=== PATIENT | female | born 1990 | race Hispanic/Latino ===

== ENCOUNTER 2017-05-14 11:56 | Emergency (ER) | payer OTHER ==
[2017-05-14 12:03] VITALS: BMI 26.5
--- NOTE | 2017-05-14 12:05 | ED PDOC ---
Arrival/HPI - General Chief Complaint: ENT Problem Time Seen by Provider: 05/14/17 12:05 Historian: Patient - History of Present Illness Narrative History of Present Illness (Text): 05/14/17 12:21 26 year old female, with no significant past medical history, is presenting to the emergency department with complaints of throat pain. The patient reports the throat pain began 4 days ago and has been taking Augmentin for the past two days, but does not feel any improvement. She states the pain is worsening and is radiating to her left ear. She reports hoarse voice. Has appointment with PMD Ric tomorrow. Denies fever, drooling, significant cough. PMD: Dr. Grover ENT: Dr. Trivedi Time/Duration: < week (4 days ) Symptom Onset: Gradual Symptom Course: Worsening Activities at Onset: Rest, Light Context: Home Past Medical History - Provider Review Nursing Documentation Reviewed: Yes - Infectious Disease Hx of Infectious Diseases: None - Tetanus Immunization Tetanus Immunization: Unknown - Past Medical History Past Medical History: No Previous - Psychiatric Hx Depression: No Hx Emotional Abuse: No Hx Physical Abuse: No Hx Substance Use: No - Past Surgical History Past Surgical History: No Previous - Suicidal Assessment Feels Threatened In Home Enviroment: No Family/Social History - Physician Review Nursing Documentation Reviewed: Yes Family/Social History: Unknown Family HX Smoking Status: Never Smoked Hx Alcohol Use: No Hx Substance Use: No Hx Substance Use Treatment: No Allergies/Home Meds Allergies/Adverse Reactions: Allergies azithromycin [From Zithromax] Allergy (Verified 05/14/17 12:03) DIARRHEA levofloxacin [From Levaquin] Allergy (Verified 05/14/17 12:03) PAIN Home Medications: Home Meds Medication Instructions Recorded Confirmed No Known Home Med 05/14/17 05/14/17 Review of Systems - Physician Review All systems were reviewed & negative as marked: Yes - Review of Systems Constitutional: absent: Fevers ENT: Voice Changes (Hoarse), Sore Throat Respiratory: Normal Physical Exam - Physical Exam Narrative Physical Exam (Text): 05/14/17 12:21 Constitutional: No acute distress. Hoarse voice. Head: Normocephalic. Atraumatic. Eyes: PERRL. ENT: Moist mucous membranes. Positive for erythema to the pharynx. Positive for exudates. No drooling. Uvula midline. No mastoid tenderness. Neck: Supple. Tender to the left lymphadenopathy. Cardiovascular: Regular rate. Chest: No tenderness. Respiratory: Clear to auscultation bilaterally. No stridor. GI: Soft. Nontender. Nondistended. Back: No CVA tenderness. Musculoskeletal: No tenderness or swelling of extremities. Skin: No rash. Neurologic: Alert, no focal deficit. Vital Signs Reviewed: Yes Vital Signs Temp Pulse Resp BP Pulse Ox 05/14/17 11:59 98.3 F 91 H 18 124/81 98 Temperature: Afebrile Blood Pressure: Normal Pulse: Regular Respiratory Rate: Normal Appearance: Positive for: Well-Appearing, Non-Toxic, Comfortable Pain Distress: None Mental Status: Positive for: Alert and Oriented X 3 Medical Decision Making ED Course and Treatment: 05/14/17 12:10 Impression: 26 y/o F p/w sore throat, on Augmentin, with follow up tomorrow. Plan: -- Rapid Strep test -- Decadron -- Toradol -- Magic mouth wash -- Reassess and disposition Prior Visits: Notes and results from previous visits were reviewed. On 04/27/14 patient came in complaining of throat pain. Patient was discharged home same day. Progress Notes: Will discharge home, has close follow up. Instructed to continue analgesia, antibiotics. Informed of worsening condition could lead to abscess formation but currently does not appear to be present. Patient states she has had abscess before and has required drainage and will watch for these symptoms. - Lab Interpretations Lab Results: Lab Results 05/14/17 13:13: Grp A Beta Strep Ag Negative I have reviewed the lab results: Yes - Medication Orders Current Medication Orders: Discontinued Medications Al Hydrox/Mg Hydrox/Simethicone (Maalox Plus 30 Ml) Confirm Administered Dose 30 ml .ROUTE .STK-MED ONE Stop: 05/14/17 12:37 Last Admin: 05/14/17 12:43 Dose: Al Hydrox/Mg Hydrox/Simethicone 30 ml/Diphenhydramine HCl 75 mg/Lidocaine 30 ml 0 ml PO STAT STA Stop: 05/14/17 12:28 Last Admin: 05/14/17 12:50 Dose: 15 ml Dexamethasone (Decadron) 10 mg PO STAT STA Stop: 05/14/17 12:29 Last Admin: 05/14/17 12:45 Dose: 10 mg Ketorolac Tromethamine (Toradol) 60 mg IM STAT STA Stop: 05/14/17 12:29 Last Admin: 05/14/17 13:01 Dose: 60 mg - Scribe Statement The provider has reviewed the documentation as recorded by the Clarence Romero Provider Scribe Attestation: All medical record entries made by the Scribe were at my direction and personally dictated by me. I have reviewed the chart and agree that the record accurately reflects my personal performance of the history, physical exam, medical decision making, and the department course for this patient. I have also personally directed, reviewed, and agree with the discharge instructions and disposition. Disposition/Present on Arrival - Present on Arrival Any Indicators Present on Arrival: No History of DVT/PE: No History of Uncontrolled Diabetes: No Urinary Catheter: No History of Decub. Ulcer: No History Surgical Site Infection Following: None - Disposition Have Diagnosis and Disposition been Completed?: Yes Diagnosis: Tonsillitis Disposition: HOME/ ROUTINE Disposition Time: 13:24 Patient Plan: Discharge Patient Problems: Current Active Problems Problem Status Onset Tonsillitis Acute Condition: STABLE Discharge Instructions (ExitCare): Tonsillitis (ED) Referrals: Aaron Larios DO [Staff Provider] - Follow up with primary
[2017-05-14] MEDS ORDERED: Aluminum Hydroxide/Magnesium 30 ML, DiphenhydrAMINE 75 MG, Lidocaine 2% Viscous 30 ML PO STA (12:27)
[2017-05-14] MEDS ORDERED: Alum-Mag Hydrox-Simethicone Susp (30 mL) ONE (12:36)
[2017-05-14 14:01] VITALS: BP 109/74; PULSE 75; RESP 20; TEMP 98; O2SAT 100
== END 2017-05-14 14:04 | disposition home or self-care (01) ==
LOC: ED 11:56
DX: J03.90 Acute tonsillitis, unspecified (principal)
CPT/HCPCS: 87070; 87430; 96372; 99283; J1885; J8540